=== PATIENT | female | born 1995 | race Caucasian/White ===

== ENCOUNTER 2017-08-23 00:13 | Emergency (ER) | payer OTHER ==
[2017-08-23] MEDS ORDERED: Levalbuterol 1.25MG/0.5ML NEB INH ONE (01:36)
[2017-08-23 02:20] LABS: Hematocrit 39 % (35-47); Mean Corpuscular HGB Conc 34 g/dl (31-36); Mean Corpuscular Hemoglobin 29 pg (27-31); Mean Corpuscular Volume 87 fL (80-97); Mean Platelet Volume 8 um3 (7.4-10.4); Red Blood Count 4.44 10^6/ul (4.0-5.4); Red Cell Distribution Width 13 % (10.5-15); White Blood Count 8.6 10^3/ul (3.5-10.8)
--- NOTE | 2017-08-23 02:29 | ED ---
HPI Febrile Illness - HPI Summary HPI Summary: Pt here w/ URI sx x 2 weeks and now has fever. Initially started with nasal congestion, ST, sneezing/coughing. Was seen at [facility] and tested for strep - neg. Was told she had viral URI and to implement conservative care methods. Started to feel better but then felt worse again a few days ago + fever 103F at home. Has been taking OTC anti-pyretics and drinking fluids - these help fever but cough is persisting. She was born prematurely as a twin - no respiratory issues at or during time frame. Pt has had bronchitis requiring breathing tx - tachycardia with albuterol. Has not been rx' d bronchodilator since sx started. Denies neck pain, headache, rash, chest pain , ab pain, N/V/D. Had a brief episode of LLQ pain the other day but this resolved and has not returned. H/o mono. - History of Current Complaint Chief Complaint: EDFever Time Seen by Provider: 08/23/17 00:35 Hx Obtained From: Patient, Family/Drop [employer] - mom joins conversation via phone Pain Intensity: 4 - Allergy/Home Medications Allergies/Adverse Reactions: Allergies Allergy/AdvReac Type Severity Reaction Status Date / Time Sulfamethoxazole Allergy Rash Verified 08/23/17 00:20 w/Trimethoprim [From Bactrim] Home Medications: Home Medications Escitalopram Oxalate [Lexapro 10 mg] 10 mg PO DAILY 08/23/17 [History Confirmed 08/23/17] Penicillin VK 500 MG TAB(NF) [Penicillin VK 500 mg Tab] 500 mg PO TID 08/23/17 [ History Confirmed 08/23/17] PMH/Surg Hx/FS Hx/Imm Hx Previously Healthy: Yes Respiratory History: Reports: Hx Asthma Infectious Disease History: No Infectious Disease History: Denies: Traveled Outside the [place] in Last 30 Days - Family History Known Family History: Positive: None - Social History Occupation: Student Lives: Dormitory/Roommates Alcohol Use: Rare Hx Substance Use: No Substance Use Type: Reports: None Hx Tobacco Use: No Smoking Status (MU): Never Smoked Tobacco Review of Systems Positive: Fever Eyes: Negative Negative: Drainage, Erythema ENT: Other - as in HPI Cardiovascular: Negative Positive: Cough Gastrointestinal: Negative Positive: no symptoms reported. Negative: dysuria, discharge, frequency, flank pain Musculoskeletal: Negative Skin: Negative Neurological: Negative Psychological: Normal All Other Systems Reviewed And Are Negative: Yes Physical Exam Triage Information Reviewed: Yes Vital Signs On Initial Exam: Initial Vitals Temp Pulse Resp BP Pulse Ox 99.3 F 86 20 126/67 99 08/23/17 00:16 08/23/17 00:16 08/23/17 00:16 08/23/17 00:16 08/23/17 00:16 Vital Signs Reviewed: Yes Appearance: Positive: Well-Appearing - other than somewhat hoarse voice, No Pain Distress, Well-Nourished Skin: Positive: Warm, Dry - no rash, no sweats Head/Face: Positive: Normal Head/Face Inspection - sinuses NTTP Eyes: Positive: Normal, EOMI, DARSHAN - no photophobia, Conjunctiva Clear ENT: Positive: Hearing grossly normal, Pharyngeal erythema - cobblestoning, Nasal congestion, TMs normal, Tonsillar swelling - +2-2.5. Negative: Nasal drainage, Tonsillar exudate, Trismus, Muffled voice Dental: Negative: Abscess @ Neck: Positive: Supple, Nontender, Enlarged Nodes @ - shoddy cc Ln's Respiratory/Lung Sounds: Positive: Clear to Auscultation, Breath Sounds Present. Negative: Rales, Rhonchi, Subcutaneous Emphysema, Stridor, Tracheal Deviation, Wheezes, Unable to speak in full sentences, Fatigue Cardiovascular: Positive: Normal, RRR, S1, S2. Negative: Murmur, Rub Abdomen Description: Positive: Nontender, No Organomegaly, Soft. Negative: CVA Tenderness (R), CVA Tenderness (L), Splenomegaly Bowel Sounds: Positive: Present Musculoskeletal: Positive: Normal, Strength/ROM Intact Neurological: Positive: Normal, Sensory/Motor Intact, Alert, Oriented to Person Place, Time, CN Intact II-III, Other - (-) Anne, (-) Adebayo Psychiatric: Positive: Normal - [place] Coma Scale Coma Scale Total: 15 Diagnostics - Vital Signs Vital Signs Temp Pulse Resp BP Pulse Ox 08/23/17 01:46 79 16 100 08/23/17 01:09 120 20 130/58 08/23/17 00:16 99.3 F 86 20 126/67 99 - Laboratory Lab Results: Lab Results 08/23/17 08/23/17 Range/Units 01:12 02:00 WBC 8.6 (3.5-10.8) 10^3/ul RBC 4.44 (4.0-5.4) 10^6/ul Hgb 13.0 (12.0-16.0) g/dl Hct 39 (35-47) % MCV 87 (80-97) fL MCH 29 (27-31) pg MCHC 34 (31-36) g/dl RDW 13 (10.5-15) % Plt Count 200 (150-450) 10^3/ul MPV 8 (7.4-10.4) um3 Neut % (Auto) 58.1 (38-83) % Lymph % (Auto) 30.3 (25-47) % [place] % (Auto) 11.0 H (1-9) % Eos % (Auto) 0.2 (0-6) % Baso % (Auto) 0.4 (0-2) % Absolute Neuts (auto) 5.0 (1.5-7.7) 10^3/ul Absolute Lymphs (auto) 2.6 (1.0-4.8) 10^3/ul Absolute Monos (auto) 0.9 H (0-0.8) 10^3/ul Absolute Eos (auto) 0 (0-0.6) 10^3/ul Absolute Basos (auto) 0 (0-0.2) 10^3/ul Absolute Nucleated RBC 0 10^3/ul Nucleated RBC % 0 Influenza A (Rapid) Negative (Negative) Influenza B (Rapid) Negative (Negative) Result Diagrams: 08/23/17 02:00 08/23/17 02:00 Diagnostic Studies Comment: CXR: (wet read) no acute cardiopulm dz Lab Statement: Any lab studies that have been ordered have been reviewed, and results considered in the medical decision making process. Re-Evaluation - Re-Evaluation First Eval Change: Improved - cough/breathing improved s/p neb tx - appears more relaxed Course/Dx - Course Course Of Treatment: Pt presents w/ URI sx x 2 weeks w/ some improvement, then fever past 4 days. Tests are w/o acute findings however it is suspected pt could be having a mono recurrence. She's had this in the past and has sx of mono re: fever, ST, fatigue and fleeting LUQ pain could have been brief splenomegaly/inflammation. She is w/o splenomegaly today and other than slightly depleted K+, labs and vitals are unremarkable for further w/u in ED. Pt's sx improved w/ neb, IVF and rest. Discussion w/ pt and mom for care of suspected mono. Advised f/u w/ [facility] and return to ED if sx are worse. Both agree w/ plan. - Diagnoses Provider Diagnoses: Fever Discharge - Discharge Plan Condition: Stable Disposition: HOME Prescriptions: Levalbuterol HFA INHALER* [Xopenex Hfa Inhaler*] 2 puff INH Q6H PRN #1 mdi PRN Reason: Shortness Of Breath Patient Education Materials: Dehydration (ED), Fever in Adults (ED) Forms: *School Release Referrals: [facility] [place] [Primary Care Provider] - Additional Instructions: The definitive cause of your illness was not identified tonight however it is suspected you may have mononucleosis. It is advised that you rest, stay hydrated and continue to use anti-pyretics as needed for fever, pain. You had some relief of your chest symptoms with xoponex - this was sent to your pharmacy. Use as directed for cough, chest tightness, shortness of breath. Follow-up with [facility] this week. Also continue penicillin until follow-up on throat cultures with [facility]. Call for results tomorrow. If you develop severe headache, neck pain/stiffness, fever uncontrolled with medications, chest pain, difficulty breathing, abdominal pain, dizziness/syncope , return to ED *If you dev Harley Souza
[2017-08-23 02:33] LABS: Albumin 3.7 g/dL (3.2-5.2); BUN/Creatinine Ratio 11.1 (8-20); C Reactive Protein 84.43 mg/L (< 5.00); Calcium 8.9 mg/dL (8.6-10.3); EGFR African American 185.1 (>60); EGFR Non-African American 143.9 (>60); Globulin 3.1 g/dL (2-4); Potassium 3.1 mmol/L (3.5-5.0); Total Bilirubin 0.2 mg/dL (0.2-1.0); Total Protein 6.8 g/dL (6.4-8.9)
[2017-08-23] MEDS ORDERED: NS 0.9% 1000 ML* 1,000 ML IV ONE ×2 (02:58)
[2017-08-23] MEDS ORDERED: Potassium Chlor TAB* 20 MEQ TAB.ER PO ONE (02:59)
[2017-08-23 04:24] VITALS: BP 128/74
--- NOTE | 2017-08-23 08:00 | RAD ---
HISTORY: Cough, fever COMPARISONS: None VIEWS: 4: Frontal dual-energy and lateral views of the chest. FINDINGS: CARDIOMEDIASTINAL SILHOUETTE: The cardiomediastinal silhouette is normal. MARITZA: The maritza are normal. PLEURA: The costophrenic angles are sharp. No pleural abnormalities are noted. LUNG PARENCHYMA: The lungs are clear. ABDOMEN: The upper abdomen is clear. There is no subphrenic gas. BONES AND SOFT TISSUES: No bone or soft tissue abnormalities are noted. OTHER: None. IMPRESSION: NO ACTIVE CARDIOPULMONARY DISEASE.
[2017-08-24 11:40] LABS: EBV Capsid Ag IgG Ab Positive (Negative); EBV Capsid Ag IgM Ab Negative (Negative)
== END 2017-08-23 04:22 | disposition home or self-care (01) ==
LOC: ED 00:13
DX: R50.9 Fever, unspecified (principal); R05 Cough
CPT/HCPCS: 36415; 71020; 80053; 83605; 85025; 86140; 86644; 86645; 86664; 86665; 87502; 94640; 96360; 99283; A9270-GY